=== PATIENT | male | born 1955 | race Two or more races ===

== ENCOUNTER 2021-08-24 05:28 | Day surgery (SDC) | payer OTHER | END 2021-08-24 09:30 | disposition home or self-care (01) | LOC: AMB-ENDOS 05:28 | PROVIDERS: ATTEND Surgery | DX: D12.5 Benign neoplasm of sigmoid colon (principal); Z20.822 Contact with and (suspected) exposure to COVID-19; Z86.010 Personal history of colon polyps ==

== ENCOUNTER 2022-12-06 09:45 | Inpatient (IN) | payer OTHER ==
[~2022-12-06] VITALS: Ht 172.7 cm; Wt 80.3 kg
[2022-12-07] MEDS ORDERED: ZOCOR20 MG PO (11:08)
[2022-12-07] MEDS ORDERED: ZESTRIL5 MG PO (11:08)
[2022-12-07] MEDS ORDERED: CYMBALTA30 MG PO (11:08)
[2022-12-16] MEDS ORDERED: ACETAMINOPHEN500 M2 PO (16:32)
[2022-12-16] MEDS ORDERED: NEURONTIN300 MG PO (16:32)
== END 2022-12-16 18:42 | disposition home or self-care (01) | DRG 331 ==
LOC: O/R 12-13 05:40 → SURH 12-13 05:40
PROVIDERS: Internal Medicine; ADMIT Surgery; ATTEND Surgery
PROC: 07BB4ZZ Excision of Mesenteric Lymphatic, Percutaneous Endoscopic Approach (ICD-10-PCS; 2022-12-13)
PROC: 0DTG4ZZ Resection of Left Large Intestine, Percutaneous Endoscopic Approach (ICD-10-PCS; principal; 2022-12-13 12:15)
DX: D12.6 Benign neoplasm of colon, unspecified (principal); R59.0 Localized enlarged lymph nodes; Z20.822 Contact with and (suspected) exposure to COVID-19